=== PATIENT | male | born 1960 | race American Indian/Alaskan Native ===

== ENCOUNTER 2020-11-07 15:50 | Emergency (ER) | payer MEDICAID ==
[2020-11-07] MEDS ORDERED: SODIUM CHLORIDE 0.9% 1000 ML 1,000 ML IV ONE (16:47)
--- NOTE | 2020-11-07 17:08 | Emergency Department Report ---
ED General Adult HPI - General Chief complaint: Nausea/Vomiting/Diarrhea Stated complaint: DEHYDRATED Time Seen by Provider: 11/07/20 16:33 Source: family Mode of arrival: Ambulatory Limitations: Other - History of Present Illness Initial comments: Patient presents to the emergency department with a caregiver for a low BP reading. Patient is nonverbal and able to help with the history. Patient has had diarrhea for the last couple of days at his facility as well as other residents at the facility. Patient's BP was checked today and it was low resting went to urgent care. Upon arrival to urgent care they were told to come to the emergency department for further evaluation. -: unknown Severity scale (0 -10): 0 Consistency: constant Improves with: none Worsens with: none Associated Symptoms: denies other symptoms Treatments Prior to Arrival: none - Related Data Home Medications Medication Instructions Recorded Confirmed Last Taken Calcium 200 PO DAILY 11/07/20 11/07/20 08:00 Finasteride 5 PO DAILY 11/07/20 11/07/20 08:00 Irbesartan 150 PO DAILY 11/07/20 11/07/20 08:00 Levothyroxine Sodium 75 PO DAILY 11/07/20 11/07/20 08:00 Allergies Allergy/AdvReac Type Severity Reaction Status Date / Time NSAIDS (Non-Steroidal Allergy Unknown Verified 11/07/20 16:10 Anti-Inflamma BENZOL PEROXIDE Allergy Anaphylaxis Uncoded 11/07/20 17:25 ED Review of Systems ROS: Stated complaint: DEHYDRATED Other details as noted in HPI Comment: Unobtainable due to pts medical conditions ED Past Medical Hx - Surgical History Past Surgical History?: No - Medications Home Medications: Home Medications Medication Instructions Recorded Confirmed Last Taken Type Calcium 200 PO DAILY 11/07/20 11/07/20 08:00 History Finasteride 5 PO DAILY 11/07/20 11/07/20 08:00 History Irbesartan 150 PO DAILY 11/07/20 11/07/20 08:00 History Levothyroxine Sodium 75 PO DAILY 11/07/20 11/07/20 08:00 History ED Physical Exam - General Limitations: Language Barrier, Other (Patient is nonverbal) General appearance: alert - Head Head exam: Present: other (Old scarring to the scalp from possibly a previous surgery) - Eye Eye exam: Present: normal appearance - ENT ENT exam: Present: mucous membranes dry - Neck Neck exam: Present: normal inspection, full ROM - Respiratory Respiratory exam: Present: normal lung sounds bilaterally. Absent: respiratory distress, wheezes, rales - Cardiovascular Cardiovascular Exam: Present: tachycardia. Absent: regular rate, normal rhythm - GI/Abdominal GI/Abdominal exam: Present: soft, normal bowel sounds. Absent: distended, tenderness - Extremities Exam Extremities exam: Present: normal inspection - Back Exam Back exam: Present: normal inspection - Neurological Exam Neurological exam: Present: alert, other (Not able to assess completely due to the patient's baseline mental capacity) - Skin Skin exam: Present: warm, dry, intact, normal color. Absent: rash ED Course Vital Signs 11/07/20 11/07/20 11/07/20 16:13 17:36 17:46 Temperature 96 F L Pulse Rate 106 H Respiratory 16 Rate Blood Pressure 96/56 [Right] O2 Sat by Pulse 98 100 100 Oximetry 11/07/20 11/07/20 11/07/20 18:00 18:16 18:30 Temperature Pulse Rate Respiratory Rate Blood Pressure [Right] O2 Sat by Pulse 99 98 99 Oximetry 11/07/20 11/07/20 11/07/20 18:46 19:00 19:12 Temperature Pulse Rate Respiratory 15 Rate Blood Pressure 111/66 [Right] O2 Sat by Pulse 99 98 106 H Oximetry ED Medical Decision Making - Lab Data Result diagrams: 11/07/20 16:52 11/07/20 16:52 Lab Results 11/07/20 11/07/20 11/07/20 Range/Units 16:52 16:52 16:52 WBC 6.2 (4.5-11.0) K/mm3 RBC 3.67 (3.65-5.03) M/mm3 Hgb 11.6 L (11.8-15.2) gm/dl Hct 34.9 L (35.5-45.6) % MCV 95 H (84-94) fl MCH 32 (28-32) pg MCHC 33 (32-34) % RDW 13.5 (13.2-15.2) % Plt Count 587 H (140-440) K/mm3 Lymph % (Auto) 37.6 H (13.4-35.0) % [place] % (Auto) 16.0 H (0.0-7.3) % Eos % (Auto) 1.4 (0.0-4.3) % Baso % (Auto) 0.4 (0.0-1.8) % Lymph # (Auto) 2.3 (1.2-5.4) K/mm3 [place] # (Auto) 1.0 H (0.0-0.8) K/mm3 Eos # (Auto) 0.1 (0.0-0.4) K/mm3 Baso # (Auto) 0.0 (0.0-0.1) K/mm3 Seg Neutrophils % 44.6 (40.0-70.0) % Seg Neutrophils # 2.8 (1.8-7.7) K/mm3 PT 15.7 H (12.2-14.9) Sec. INR 1.20 H (0.87-1.13) APTT 35.9 (24.2-36.6) Sec. Sodium 139 (137-145) mmol/L Potassium 4.0 (3.6-5.0) mmol/L Chloride 101.1 (98-107) mmol/L Carbon Dioxide 29 (22-30) mmol/L Anion Gap 13 mmol/L BUN 16 (9-20) mg/dL Creatinine 0.6 L (0.8-1.3) mg/dL Estimated GFR > 60 ml/min BUN/Creatinine Ratio 27 % Glucose 92 (75-100) mg/dL Calcium 8.6 (8.4-10.2) mg/dL Magnesium 1.90 (1.7-2.3) mg/dL Total Bilirubin 0.30 (0.1-1.2) mg/dL AST 13 (5-40) units/L ALT 17 (7-56) units/L Alkaline Phosphatase 67 (35-129) units/L Total Protein 5.9 L (6.3-8.2) g/dL Albumin 3.1 L (3.9-5) g/dL Albumin/Globulin Ratio 1.1 % - Medical Decision Making The patient's BP improved after IV fluids Critical care attestation.: If time is entered above; I have spent that time in minutes in the direct care of this critically ill patient, excluding procedure time. ED Disposition Clinical Impression: Dehydration, Diarrhea, Hypotension Disposition: DC-01 TO HOME OR SELFCARE Is pt being admited?: No Does the pt Need Aspirin: No Condition: Stable Instructions: Hypotension, [id number], Dehydration, Adult, [id number], Rehydration, Adult, Diarrhea, Adult Additional Instructions: return if worse Referrals: LITO MORENO MD [Staff Physician] - 3-5 Days Time of Disposition: 19:47
[2020-11-07 17:42] LABS: Basophils % (Auto) 0.4 % (0.0-1.8); Eosinophils # (Auto) 0.1 K/mm3 (0.0-0.4); Eosinophils % (Auto) 1.4 % (0.0-4.3); Hematocrit 34.9 % (35.5-45.6); Hemoglobin 11.6 gm/dl (11.8-15.2); Lymphocytes # (Auto) 2.3 K/mm3 (1.2-5.4); Lymphocytes % (Auto) 37.6 % (13.4-35.0); Mean Corpuscular HGB Conc 33 % (32-34); Mean Corpuscular Volume 95 fl (84-94); Platelet Count 587 K/mm3 (140-440); Red Blood Count 3.67 M/mm3 (3.65-5.03); Red Cell Distribution Width 13.5 % (13.2-15.2)
[2020-11-07 17:53] LABS: Alanine Aminotransferase 17 units/L (7-56); Albumin 3.1 g/dL (3.9-5); Blood Urea Nitrogen 16 mg/dL (9-20); Calcium 8.6 mg/dL (8.4-10.2); Hemolysis Index 9
[2020-11-07 17:54] LABS: BUN/Creatinine Ratio 27; INR 1.2 (0.87-1.13)
[2020-11-07 17:55] LABS: Partial Thromboplastin Time 35.9 Sec. (24.2-36.6)
[2020-11-07 20:49] VITALS: BP 118/60
== END 2020-11-07 21:13 | disposition home or self-care (01) ==
LOC: ED 15:50
DX: E86.0 Dehydration (principal); R19.7 Diarrhea, unspecified; I95.9 Hypotension, unspecified; Z79.899 Other long term (current) drug therapy; Z88.8 Allergy status to other drugs, medicaments and biological substances
CPT/HCPCS: 36415; 80053; 83735; 85025; 85610; 85730; 96360; 96361; 99283; J7030